=== PATIENT | female | born 1965 | race Caucasian/White ===

== ENCOUNTER 2019-03-30 13:16 | Emergency (ER) | payer OTHER ==
[~2019-03-30] VITALS: Ht 160 cm; Wt 94.8 kg
[2019-03-30] MEDS ORDERED: AMARYL (13:23)
[2019-03-30] MEDS ORDERED: ZETIA10 MG (13:23)
[2019-03-30] MEDS ORDERED: NEURONTIN300 MG (13:23)
== END 2019-03-31 12:26 | disposition home or self-care (01) ==
LOC: ER 13:16
DX: K57.32 Diverticulitis of large intestine without perforation or abscess without bleeding (principal); R10.32 Left lower quadrant pain
CPT/HCPCS: 74177; Q9965